=== PATIENT | female | born 1960 | race Caucasian/White ===

== ENCOUNTER 2021-10-01 11:40 | Emergency (ER) | payer OTHER ==
[~2021-10-01 11:40] MED LIST: PREDNISONE50 MG PO; TESSALON PERLE100 M1 PO; VIBRAMYCIN100 MG PO
== END 2021-10-01 14:40 | disposition home or self-care (01) ==
LOC: FER 11:40
DX: S46.011A Strain of muscle(s) and tendon(s) of the rotator cuff of right shoulder, initial encounter (principal); I12.9 Hypertensive chronic kidney disease with stage 1 through stage 4 chronic kidney disease, or unspecified chronic kidney disease; N18.9 Chronic kidney disease, unspecified; Z88.6 Allergy status to analgesic agent; W18.30XA Fall on same level, unspecified, initial encounter; Y93.89 Activity, other specified; Y92.009 Unspecified place in unspecified non-institutional (private) residence as the place of occurrence of the external cause
CPT/HCPCS: 73030